=== PATIENT | female | born 1995 | race Caucasian/White ===

== ENCOUNTER 2024-06-18 15:19 | Outpatient (CLI) | payer OTHER, SELFPAY ==
--- NOTE | ~2024-06-18 | CT_ITS ---
EXAMINATION: CT abdomen wo/w con DATE: 06/18/2024 16:02 INDICATION: Androgen excess TECHNIQUE: Computed tomography (CT) of the abdomen and pelvis was performed without and with 100 mL O mnipaque-350 intravenous contrast. Automated exposure control and iterative reconstruction technique were employed. The dose-length product was 2143.56 mGy-cm. COMPARISON: None FINDINGS: Lung bases are clear. Arch size is normal. No pericardial or pleural effusion. Mild focal hepatic gwendolyn atosis at the ligamentum teres. Gallbladder, spleen, pancreas, bilateral adrenal glands and kidneys a re normal. Visualized portions of bowels including the appendix are normal. No pathologically enlarge d abdominal lymphadenopathy. Bones are unremarkable. IMPRESSION: 1. Unremarkable abdomen CT with normal bilateral adrenal glands. Reviewed, dictated and finalized at location B.
== END 2024-06-18 15:20 | disposition home or self-care (01) ==
LOC: MICIMG 15:21
PROVIDERS: Visit Provider Obstetrics & Gynecology Gynecology
DX: E28.1 Androgen excess (principal)
CPT/HCPCS: 74170; Q9967